=== PATIENT | female | born 1940 | race Caucasian/White ===

== ENCOUNTER 2018-10-29 12:10 | Observation (INO) ==
[2018-10-29] MEDS ORDERED: Aspirin 81 MG TAB.CHEW PO ONE (12:39)
[2018-10-29 13:23] LABS: Basophils # 0.1 K/mcL (0.0-0.2); Basophils % 0.4 %; Eosinophils # 0.1 K/mcL (0.0-0.6); Eosinophils % 0.3 %; Hematocrit 38.5 % (35.3-44.9); Hemoglobin 12.1 g/dL (11.5-15.4); Immature Granulocytes % 1.2 % (0-4); Lymphocytes # 1.6 K/mcL (0.6-4.6); Lymphocytes % 8.7 %; Mean Corpuscular HGB Conc 31.4 g/dL (31.6-35.5); Mean Corpuscular Hemoglobin 30.7 pg (28.0-33.3); Mean Corpuscular Volume 97.7 fL (83.0-100.0); Mean Platelet Volume 10.1 fL (9.4-12.4); Monocytes # 1.2 K/mcL (0.0-1.3); Monocytes % 6.2 %; Neutrophils # 15.6 K/mcL (1.6-8.9); Platelet Count 312 K/mcL (140-400); Red Blood Count 3.94 M/mcL (3.82-4.97); Red Cell Distribution Width 14.5 % (11.5-14.5); Segmented Neutrophils % 83.2 %
[2018-10-29 13:35] LABS: Prothrombin Time 10.8 Seconds (9.4-12.1)
[2018-10-29 13:37] LABS: Activated Partial Thrombo Time 25.9 Seconds (26.0-36.0)
[2018-10-29 14:38] LABS: Calcium 9.3 mg/dL (8.6-10.3); Potassium 4.2 mEq/L (3.5-5.1)
[2018-10-29] MEDS ORDERED: Isovue-370 500 ML BOTTLE IVP ONE (15:31)
[2018-10-29] MEDS ORDERED: *HR* Enoxaparin 80 MG/0.8 ML SYRINGE SQ STA (18:05)
--- NOTE | 2018-10-29 18:08 | Emergency Department Note ---
Disposition Clinical Impression: Pulmonary embolism Disposition: Admitted As Inpatient Condition: Good Referrals: Viktor Michel MD [Primary Care Provider] - Forms: ED Satisfaction Letter Time of Disposition: 18:33 Chest Pain HPI - General Chief Complaint: ED Chest Pain Stated Complaint: Chest Pain Time Seen by Provider: 10/29/18 12:38 - History of Present Illness HPI Narrative: The patient is a 78-year-old female presents to the emergency department compla ining of chest pain. Patient states that she has a sharp reproducible type chest pain been going on for several days. The patient is worse with inspiration and worse with movement. Patient reports his prior history of COPD and has had some mild shortness of breath. Patient denies hemoptysis. - Related Data Previous Rx's Medication Instructions Recorded Oxycodone HCl/Acetaminophen 1 each PO Q6H PRN #15 tablet 07/20/16 [Percocet 5-325 mg Tablet] Allergies Allergy/AdvReac Type Severity Reaction Status Date / Time acetaminophen [From Vicodin] Allergy Itching Verified 07/02/18 11:00 hydrocodone [From Vicodin] Allergy Itching Verified 07/02/18 11:00 All systems ED: reviewed and negative except as stated. Chest Pain PMH - Past Medical History Medical history: Reports: non-contributory Surgical history: Reports: orthopedic, other Psychiatric history: Reports: no psych history - Social History Smoking Status: Never smoker Alcohol use: Reports: none Drug use: Reports: none Physical Exam General: Conversant and pleasant interactive and nontoxic. Head: Normocephalic/atraumatic Eyes:PERRLA, EOMI, no conjunctivitis Nares: Without d/c. Ears: No erythema or d/c noted. Oralpharnyx: P&MMM noted, Neck: Supple, no JVD or ROAD CLEANER noted. Cardovascular: regular rate and rhythm without murmur, brisk capillary refill, no peripheral edema. Chest wall tender to palpation Lungs: Clear to ascultation bilaterally, non-labored Abd: Soft nontender, Non Distended, no guarding, no rebound. : Defered Extremities: moves all extremities equally Neuro: AOx3, no obvious gross neuro deficit Psych: Normal Affect Derm: No rash noted Course Course Narrative: Patient is feeling better in the emergency department. The scan showed evidence of pulmonary embolism was discussed with the patient will start oral novel anticoagulant the patient in review of the patient's insurance found that it would be over $200 a month for a novel anticoagulant versus Coumadin. Patient is times opted for warfarin therapy is will be discussed with the hospitalist initially admitted to the hospital service Vital Signs O2 Sat by Pulse Oximetry 98 10/29/18 12:58 O2 Sat by Pulse Oximetry 98 10/29/18 12:58 Chest Pain - MDM Narrative Medical decision making narrative: Given the findings of the new onset pulmonary embolism patient was found to have insurance that would cost a significant amount for a nominal anticoagulant. This time the decision was made to treat the patient with warfarin case will be discussed with the hospitalist currently the hospitalists is unable take calls for admissions, I signed out to Dr. Jefferson pending hospitalist acceptance - Lab Data Result diagrams: 10/29/18 12:50 10/29/18 13:46 Lab Results 10/29/18 10/29/18 10/29/18 Range/Units 12:50 12:50 12:50 WBC 18.7 H (4.3-11.1) K/mcL RBC 3.94 (3.82-4.97) M/mcL Hgb 12.1 (11.5-15.4) g/dL Hct 38.5 (35.3-44.9) % MCV 97.7 (83.0-100.0) fL MCH 30.7 (28.0-33.3) pg MCHC 31.4 L (31.6-35.5) g/dL RDW 14.5 (11.5-14.5) % Plt Count 312 (140-400) K/mcL MPV 10.1 (9.4-12.4) fL Immature Gran % 1.2 (0-4) % Seg Neutrophils % 83.2 % Lymphocytes % 8.7 % Monocytes % 6.2 % Eosinophils % 0.3 % Basophils % 0.4 % Neutrophils # 15.6 H (1.6-8.9) K/mcL Lymphocytes # 1.6 (0.6-4.6) K/mcL Monocytes # 1.2 (0.0-1.3) K/mcL Eosinophils # 0.1 (0.0-0.6) K/mcL Basophils # 0.1 (0.0-0.2) K/mcL PT 10.8 (9.4-12.1) Seconds INR 1.0 APTT 25.9 L (26.0-36.0) Seconds Sodium Potassium Chloride Carbon Dioxide BUN Creatinine Est GFR ( Amer) Est GFR (Non-Af Amer) BUN/Creatinine Ratio Glucose Calculated Osmolality Calcium Troponin I (< 0.04) ng/mL B-Natriuretic Peptide 83 (Less than 100) pg/mL Specimen Rejected 10/29/18 10/29/18 10/29/18 Range/Units 12:50 13:37 13:46 WBC (4.3-11.1) K/mcL RBC (3.82-4.97) M/mcL Hgb (11.5-15.4) g/dL Hct (35.3-44.9) % MCV (83.0-100.0) fL MCH (28.0-33.3) pg MCHC (31.6-35.5) g/dL RDW (11.5-14.5) % Plt Count (140-400) K/mcL MPV (9.4-12.4) fL Immature Gran % (0-4) % Seg Neutrophils % % Lymphocytes % % Monocytes % % Eosinophils % % Basophils % % Neutrophils # (1.6-8.9) K/mcL Lymphocytes # (0.6-4.6) K/mcL Monocytes # (0.0-1.3) K/mcL Eosinophils # (0.0-0.6) K/mcL Basophils # (0.0-0.2) K/mcL PT (9.4-12.1) Seconds INR APTT (26.0-36.0) Seconds Sodium Cancelled 136 Potassium Cancelled 4.2 Chloride Cancelled 99 Carbon Dioxide Cancelled 31 H BUN Cancelled 24 H Creatinine Cancelled 1.13 Est GFR ( Amer) Cancelled 56 L Est GFR (Non-Af Amer) Cancelled 46 L BUN/Creatinine Ratio Cancelled 21 Glucose Cancelled 140 H Calculated Osmolality Cancelled 288 Calcium Cancelled 9.3 Troponin I 0.03 (< 0.04) ng/mL B-Natriuretic Peptide (Less than 100) pg/mL Specimen Rejected Hemolyzed
--- NOTE | 2018-10-29 18:30 | Emergency Department Note ---
Disposition Clinical Impression: Pulmonary embolism Disposition: Admitted As Inpatient Condition: Good Referrals: Viktor Michel MD [Primary Care Provider] - Forms: ED Satisfaction Letter General Adult HPI - General Chief complaint: ED Chest Pain Stated complaint: Chest Pain Time Seen by Provider: 10/29/18 12:38 - Related Data Previous Rx's Medication Instructions Recorded Oxycodone HCl/Acetaminophen 1 each PO Q6H PRN #15 tablet 07/20/16 [Percocet 5-325 mg Tablet] Allergies Allergy/AdvReac Type Severity Reaction Status Date / Time acetaminophen [From Vicodin] Allergy Itching Verified 07/02/18 11:00 hydrocodone [From Vicodin] Allergy Itching Verified 07/02/18 11:00 Past Medical History - Past Medical History Medical history: Reports: non-contributory Surgical history: Reports: orthopedic, other Psychiatric history: Reports: no psych history - Social History Smoking Status: Never smoker Smokeless Tobacco Status: No Alcohol use: Reports: none Drug use: Reports: none Course - Reevaluation(s) Reevaluation #1: Patient signed out to my care at 1826 by the departing daytime ED attending Dr. Etelvina Clemente. Please see copy of his note for details of the H&P evaluation management and disposition to the point of sign out at 1826. Patient's workup was positive for right lower pulmonary artery thrombosis. Patient has been heparinized and we are waiting for the hospitalist to call back for admission. Patient stable Time: 18:26 Reevaluation #2: I was informed by Dr. Etelvina Clemente that he took it upon himself to speak with the hospitalist and get this patient admitted. Please see copy of his note for the admission details. Time: 18:59 Vital Signs O2 Sat by Pulse Oximetry 98 10/29/18 12:58 O2 Sat by Pulse Oximetry 98 10/29/18 12:58 Medical Decision Making - Lab Data Result diagrams: 10/29/18 12:50 10/29/18 13:46 Lab Results 10/29/18 10/29/18 10/29/18 Range/Units 12:50 12:50 12:50 WBC 18.7 H (4.3-11.1) K/mcL RBC 3.94 (3.82-4.97) M/mcL Hgb 12.1 (11.5-15.4) g/dL Hct 38.5 (35.3-44.9) % MCV 97.7 (83.0-100.0) fL MCH 30.7 (28.0-33.3) pg MCHC 31.4 L (31.6-35.5) g/dL RDW 14.5 (11.5-14.5) % Plt Count 312 (140-400) K/mcL MPV 10.1 (9.4-12.4) fL Immature Gran % 1.2 (0-4) % Seg Neutrophils % 83.2 % Lymphocytes % 8.7 % Monocytes % 6.2 % Eosinophils % 0.3 % Basophils % 0.4 % Neutrophils # 15.6 H (1.6-8.9) K/mcL Lymphocytes # 1.6 (0.6-4.6) K/mcL Monocytes # 1.2 (0.0-1.3) K/mcL Eosinophils # 0.1 (0.0-0.6) K/mcL Basophils # 0.1 (0.0-0.2) K/mcL PT 10.8 (9.4-12.1) Seconds INR 1.0 APTT 25.9 L (26.0-36.0) Seconds Sodium Potassium Chloride Carbon Dioxide BUN Creatinine Est GFR ( Amer) Est GFR (Non-Af Amer) BUN/Creatinine Ratio Glucose Calculated Osmolality Calcium Troponin I (< 0.04) ng/mL B-Natriuretic Peptide 83 (Less than 100) pg/mL Specimen Rejected 10/29/18 10/29/18 10/29/18 Range/Units 12:50 13:37 13:46 WBC (4.3-11.1) K/mcL RBC (3.82-4.97) M/mcL Hgb (11.5-15.4) g/dL Hct (35.3-44.9) % MCV (83.0-100.0) fL MCH (28.0-33.3) pg MCHC (31.6-35.5) g/dL RDW (11.5-14.5) % Plt Count (140-400) K/mcL MPV (9.4-12.4) fL Immature Gran % (0-4) % Seg Neutrophils % % Lymphocytes % % Monocytes % % Eosinophils % % Basophils % % Neutrophils # (1.6-8.9) K/mcL Lymphocytes # (0.6-4.6) K/mcL Monocytes # (0.0-1.3) K/mcL Eosinophils # (0.0-0.6) K/mcL Basophils # (0.0-0.2) K/mcL PT (9.4-12.1) Seconds INR APTT (26.0-36.0) Seconds Sodium Cancelled 136 Potassium Cancelled 4.2 Chloride Cancelled 99 Carbon Dioxide Cancelled 31 H BUN Cancelled 24 H Creatinine Cancelled 1.13 Est GFR ( Amer) Cancelled 56 L Est GFR (Non-Af Amer) Cancelled 46 L BUN/Creatinine Ratio Cancelled 21 Glucose Cancelled 140 H Calculated Osmolality Cancelled 288 Calcium Cancelled 9.3 Troponin I 0.03 (< 0.04) ng/mL B-Natriuretic Peptide (Less than 100) pg/mL Specimen Rejected Hemolyzed
[2018-10-29] MEDS ORDERED: Naloxone 0.4 MG/ML INJ IVP PRN (20:26)
--- NOTE | 2018-10-29 21:14 | Internal Med History&Physical ---
Date of Encounter: 10/29/18 Time of Encounter: 20:48 Internal Medicine - H&P: HPI Chief complaint: Pulmonary embolism Admitted From: Emergency Dept Plans for Post Hospital Care: Home History of present illness: Ms. Limon is a 78 year old female Patient presented to the emergency room with chest pain. She says that she has had it for the last couple of days and that it was worse with inspiration as well as exertion. She has a history of COPD and arthritis. She denies trauma, falls or injury. She lives at home with a friend who helps take care of her medications. Because the pain that improved after several days, she went to see her primary care doctor. At that point she was then referred to the emergency room for further evaluation. In the emergency room patient's vital signs were within normal limits. CBC revealed a white count of 18.7, and BMP revealed a GFR of 46 and a glucose of 140. Initial troponin was 0.03, BNP was 83. INR was 1.0. Chest x-ray showed no acute cardiopulmonary process, and CT angiogram revealed a pulmonary embolism in the right lower lobe pulmonary artery. The emergency department discussed anticoagulation with the patient, and she decided that she wanted warfarin therapy due to the expense of novel anticoagulants. She was given a dose of Lovenox and admitted to the hospital floor for further management. Upon my assessment, patient is resting comfortably in hospital bed in no acute distress. She denies chest pain, abdominal pain, nausea, vomiting, diarrhea and constipation. She had some shortness of breath earlier but this is improved. She has a past medical history of hypertension, arthritis and COPD. She is a family history of cerebral hemorrhage and blood clots on her father's side of the family and her mother had colon cancer. She does not know her home medications, and states that her friend that lives with her helps with her medicines. When asked about her CODE STATUS, patient indicated that she would not want to be resuscitated or intubated if required. Past Med Surg Social Fam HX - Past Medical History Medical history: COPD, diabetes, pulmonary embolus Psychiatric history: no psych history - Past Surgical History Surgical History: orthopedic, other - Social History Smoking Status: Former smoker Smokeless Tobacco Status: No Alcohol use: none Drug use: none Internal Medicine - H&P: Meds Oxycodone HCl/Acetaminophen [Percocet 5-325 mg Tablet] 1 each PO Q6H PRN #15 tablet 07/20/16 [Rx] Allergy/AdvReac Type Severity Reaction Status Date / Time acetaminophen [From Vicodin] Allergy Itching Verified 07/02/18 11:00 hydrocodone [From Vicodin] Allergy Itching Verified 07/02/18 11:00 All Systems PM: A 10-system review of systems was performed and is negative for pertinent findings except as documented above in the HPI. - Constitutional Vitals: Temp Pulse Resp BP Pulse Ox 98.4 F 91 16 187/82 95 10/29/18 20:59 10/29/18 20:59 10/29/18 20:59 10/29/18 20:59 10/29/18 20:59 General appearance: Present: cooperative, A&O X 3, pleasant, no acute distress, answers questions appropriately Exam: - - Head Head exam: Present: normal inspection - Eye Eye exam: Present: EOMI, normal appearance - Respiratory Respiratory exam: Present: CTAB. Absent: rales, respiratory distress, rhonchi, wheezes - Cardiovascular Cardiovascular exam: Present: RRR. Absent: diastolic murmur, systolic murmur - GI/Abdominal GI/Abdominal exam: Present: normal bowel sounds, soft. Absent: tenderness - Extremities Exam Extremities exam: Present: pedal edema, warm, radial pulses palpable and symmetrical. Absent: tenderness Additional comments: +1 pitting edema bilaterally lower extremities - Neurological Exam Neurological exam: Present: no focal deficits, strengths equal and symetr throug hout. Absent: motor sensory deficit, facial droop, speech deficit - Skin Skin exam: Present: dry, normal color, warm Internal Med - H&P Results - Labs CBC & Chem 7: 10/29/18 12:50 10/29/18 13:46 Labs: Short CBC 10/29/18 Range/Units 12:50 WBC 18.7 H (4.3-11.1) K/mcL Hgb 12.1 (11.5-15.4) g/dL Hct 38.5 (35.3-44.9) % Plt Count 312 (140-400) K/mcL Neutrophils # 15.6 H (1.6-8.9) K/mcL BMP 10/29/18 10/29/18 12:50 13:46 Sodium Cancelled 136 Potassium Cancelled 4.2 Chloride Cancelled 99 Carbon Dioxide Cancelled 31 H BUN Cancelled 24 H Creatinine Cancelled 1.13 Glucose Cancelled 140 H Calcium Cancelled 9.3 Cardiac Enzymes 10/29/18 Range/Units 12:50 Troponin I 0.03 (< 0.04) ng/mL - Impressions ITS Impressions Chest X-Ray 10/29/18 12:39 IMPRESSION: No acute cardiopulmonary process. D/ / Semaj Lam MD / Semaj Lam MD Interpreting Provider: Semaj Lam MD Chest CTA 10/29/18 15:31 IMPRESSION: Pulmonary embolism right lower lobe pulmonary artery. Findings were discussed with Artemio Evans at 4:50 pm on 10/29/2018. D/ / Raymond Gill MD / Raymond Gill MD Interpreting Provider: Raymond Gill MD - Assessment and Plan (1) Pulmonary embolism Current Visit: Yes Status: Acute Assessment and plan: Patient found to have a right lower lobe pulmonary embolism. She received Lovenox in the emergency room. She has never had blood clots before, but does stay that her father had history of blood clots. Start Coumadin tonight Continue to bridge with lovenox until therapeutic INR INR in the morning Pharmacy to dose Coumadin Echocardiogram in the morning Qualifiers: Pulmonary embolism type: other Chronicity: acute Acute cor pulmonale pre sence: without acute cor pulmonale Qualified Code(s): I26.99 - Other pulmonary embolism without acute cor pulmonale (2) Hyperglycemia Current Visit: Yes Status: Acute Assessment and plan: Patient had elevated blood sugars upon arrival to the medical floor. She denies history of diabetes. She did have a hamburger and fries before her arrival. Repeat blood sugar Check A1c in the morning May consider sliding scale insulin if needed (3) Left shoulder pain Current Visit: Yes Status: Acute Assessment and plan: Secondary to chronic arthritis. Patient does not know her home meds. Pain management as needed Qualifiers: Chronicity: chronic Qualified Code(s): M25.512 - Pain in left shoulder; G89.29 - Other chronic pain (4) Lower extremity edema Current Visit: Yes Status: Acute Assessment and plan: Patient has slight 1+ pitting edema bilaterally, which she says has been worse over the last few days. She denies history of heart failure. Echocardiogram in the morning (5) Hypertension Current Visit: Yes Status: Acute Assessment and plan: Patient's blood pressure was elevated upon arrival to the floor with a systolic of 187. Patient does not know her home meds. Hydralazine 10 mg IV every 6 hours as needed Qualifiers: Hypertension type: essential hypertension Qualified Code(s): I10 - Essential (primary) hypertension (6) DVT prophylaxis Current Visit: Yes Status: Acute Assessment and plan: Patient received lovenox in the ER. Will be starting warfarin for home use. Pharmacy recommends 5mg dose tonight, get INR in the morning. Pharmacy to continue to dose coumadin. - Time Spent With Patient Total time spent is greater than 50% in coordination of care (as documented) at patient's floor/unit and/or counseling patient: Greater than 35 minutes
[2018-10-29] MEDS ORDERED: *HR* Warfarin 5 MG TABLET PO ONE (21:33)
[2018-10-29] MEDS ORDERED: Ibuprofen 400 MG TABLET PO PRN (21:46)
[2018-10-30 01:30] LABS: BUN/Creatinine Ratio 20 (6-26); Blood Urea Nitrogen 20 mg/dL (8-23); Calcium 9.2 mg/dL (8.6-10.3); Carbon Dioxide 28 mEq/L (23-29); Chloride 101 mEq/L (98-107); Glucose 138 mg/dL (70-105); Osmolality,Calculated 289 (280-300); Potassium 3.5 mEq/L (3.5-5.1); Sodium 137 mEq/L (136-145); eGFR For Non-African Americans 52 (> 60)
[2018-10-30 01:47] LABS: Hematocrit 37.7 % (35.3-44.9); Hemoglobin 12.2 g/dL (11.5-15.4); Mean Corpuscular HGB Conc 32.4 g/dL (31.6-35.5); Mean Corpuscular Hemoglobin 30.7 pg (28.0-33.3); Mean Platelet Volume 9.8 fL (9.4-12.4); Platelet Count 314 K/mcL (140-400); Red Blood Count 3.97 M/mcL (3.82-4.97); Red Cell Distribution Width 14.6 % (11.5-14.5)
[2018-10-30 01:51] LABS: Prothrombin Time 11.3 Seconds (9.4-12.1)
[2018-10-30 02:26] LABS: Estimated Average Glucose 171 mg/dl; Hemoglobin A1C 7.6 %
[2018-10-30] MEDS ORDERED: *HR* Enoxaparin 80 MG/0.8 ML SYRINGE SQ SCH (06:00)
[2018-10-30] MEDS: Ondansetron 4 MG/2 ML VIAL IVP PRN ×2 (06:43→17:35)
--- NOTE | 2018-10-30 08:59 | Internal Med Progress Note ---
Hospitalist Progress Note - Encounter Date of Encounter: 10/30/18 Time of Encounter: 08:53 - Subjective Interval History: Patient seen and examined this morning at bedside. No acute overnight events. Breathing improved. Currently without any chest pain. Denies any abdominal pain and nausea vomiting and diarrhea. Afebrile. - Exam Vitals: Temp Pulse Resp BP Pulse Ox 97.8 F 100 16 120/68 94 10/30/18 06:46 10/30/18 06:46 10/30/18 06:46 10/30/18 06:46 10/30/18 06:46 Exam: General: In no acute distress. Respiratory exam: CTAB. no accessory muscle use, rales, rhonchi, wheezes Cardiovascular exam: RRR, +S1, +S2. no murmur, gallop, rubs. GI/Abdominal exam: Non-tender, Non-distended, normal bowel sounds, soft, no peritoneal signs. Extremities exam: trace pedal edema, pulses palpable in b/l lower extremities. no calf tenderness Neurological exam: CN II-XII intact, AO X3, no focal deficits. Skin exam: multiple ecchymosis in arms an legs. - Summary of Assessment and Plan Summary of Assessment and Plan: Pulmonary embolism - right lower lobe pulmonary embolism. - c/w Lovenox bridge to coumadin. No recent immobilization. some h/o blood clot in father. details unknown - f/u Echocardiogram Hyperglycemia - Denies being diabetic - On prednisone for arthritis - A1c in diabetic range - Will discuss about metformin on discharge Left shoulder pain - has chronic arthritis. - c/w home medications Hypertension - Resume home medications - Hydralazine 10 mg IV every 6 hours as needed DVT prophylaxis - on lovenox to bridge to warfarin. - Time Spent with Patient Total time spent is greater than 50% in coordination of care (as documented) at patient's floor/unit and/or counseling patient: Internal Medicine: Result - Labs CBC & Chem 7: 10/30/18 00:54 10/30/18 00:54 Labs: Short CBC 10/29/18 10/30/18 Range/Units 12:50 00:54 WBC 18.7 H 16.7 H (4.3-11.1) K/mcL Hgb 12.1 12.2 (11.5-15.4) g/dL Hct 38.5 37.7 (35.3-44.9) % Plt Count 312 314 (140-400) K/mcL Neutrophils # 15.6 H (1.6-8.9) K/mcL BMP 10/29/18 10/29/18 10/30/18 12:50 13:46 00:54 Sodium Cancelled 136 137 Potassium Cancelled 4.2 3.5 Chloride Cancelled 99 101 Carbon Dioxide Cancelled 31 H 28 BUN Cancelled 24 H 20 Creatinine Cancelled 1.13 1.02 Glucose Cancelled 140 H 138 H Calcium Cancelled 9.3 9.2 Cardiac Enzymes 10/29/18 Range/Units 12:50 Troponin I 0.03 (< 0.04) ng/mL - ABG Interpretation ABG results: PT/INR, D-dimer PT 11.3 Seconds (9.4-12.1) 10/30/18 00:54 - Impressions Impressions Chest X-Ray 10/29/18 12:39 IMPRESSION: No acute cardiopulmonary process. D/ / Semaj Lam MD / Semaj Lam MD Interpreting Provider: Semaj Lam MD Chest CTA 10/29/18 15:31 IMPRESSION: Pulmonary embolism right lower lobe pulmonary artery. Findings were discussed with Artemio Evans at 4:50 pm on 10/29/2018. D/ / Raymond Gill MD / Raymond Gill MD Interpreting Provider: Raymond Gill MD Echocardiogram 10/29/18 20:30 Impressions: Blood pressure 187/82 mmHg at time of study. LVEF 65%. Mild left ventricular diastolic dysfunction. Mild concentric left ventricular hypertrophy. Normal right ventricular structure and function. Mild mitral regurgitation. No pulmonary hypertension. Left Ventricular Wall Motion: Rest Echo Findings All wall segments showed normal motion. Findings: Study Quality * Technically adequate exam. ECG Findings * Sinus tachycardia. Left Ventricle * LVEF 65%. * Mild left ventricular diastolic dysfunction. * Mild concentric left ventricular hypertrophy. Right Ventricle * Normal right ventricular structure and function. Left Atrium * Normal left atrial size. Right Atrium * Normal right atrial size. Mitral Valve * Normal mitral valve structure. * No mitral stenosis. * Mild mitral regurgitation. Aortic Valve * No aortic regurgitation. * Aortic valve not well visualized. * No aortic stenosis. Tricuspid Valve * Tricuspid valve not well visualized. * Trace tricuspid regurgitation. Pulmonic Valve * Trace pulmonic regurgitation. * Pulmonic valve is not well visualized. * No pulmonic stenosis. Pulmonary Artery * Pulmonary artery not well visualized. Aorta * Normally sized aortic root. Pericardium * There is no pericardial effusion present. Interatrial Septum * Interatrial septum not well evaluated. IVC * The IVC is not well evaluated. Consult Discharge Plan - Plan Referrals: Viktor Michel MD [Primary Care Provider] -
[2018-10-30] MEDS ORDERED: NON-FORMULARY MEDICATION 1 EACH EACH (Pantoprazole Sodium [Protonix] 40 MG) PO SCH (09:00)
[2018-10-30] MEDS ORDERED: SALMETEROL PO SCH (09:00)
[2018-10-30] MEDS ORDERED: FLUTICASONE PO SCH (09:00)
[2018-10-30] MEDS: Lisinopril 20 MG TABLET PO SCH (10:06)
[2018-10-30] MEDS: amLODIPine 5 MG TABLET PO SCH (10:06)
[2018-10-30] MEDS: predniSONE 5 MG TABLET PO SCH ×2 (10:06→21:04)
[2018-10-30] MEDS: clonazePAM 0.5 MG TABLET PO SCH ×2 (10:06→21:04)
[2018-10-30] MEDS: Fluticasone Propionate Nasal 50 MCG/SPRAY BOTTLE NS SCH (12:02)
[2018-10-30] MEDS: Tiotropium 18 MCG inhalation IH SCH (13:36)
[2018-10-30] MEDS: Budesonide/Formoterol 160/4.5 1 PUFF INH IH SCH ×2 (13:36→20:07)
[2018-10-30] MEDS ORDERED: Warfarin perPT PO PRN (18:00)
[2018-10-30] MEDS ORDERED: *HR* Warfarin 5 MG TABLET PO ONE (18:00)
[2018-10-31 06:24] LABS: INR 1.1; Prothrombin Time 12.9 Seconds (9.4-12.1)
[2018-10-31] MEDS: Fluticasone Propionate Nasal 50 MCG/SPRAY BOTTLE NS SCH (08:02)
[2018-10-31] MEDS: clonazePAM 0.5 MG TABLET PO SCH (08:03)
[2018-10-31] MEDS: amLODIPine 5 MG TABLET PO SCH (08:04)
[2018-10-31] MEDS: predniSONE 5 MG TABLET PO SCH (08:05)
[2018-10-31] MEDS: Lisinopril 20 MG TABLET PO SCH (08:05)
[2018-10-31] MEDS ORDERED: *HR* Enoxaparin 80 MG/0.8 ML SYRINGE SQ SCH (09:00)
[2018-10-31 11:00] VITALS: BP 132/78
[2018-10-31] MEDS: Tiotropium 18 MCG inhalation IH SCH (11:05)
[2018-10-31] MEDS: Budesonide/Formoterol 160/4.5 1 PUFF INH IH SCH (11:05)
--- NOTE | 2018-10-31 12:29 | Discharge Summary ---
- NOTES TO OUTPATIENT PROVIDER Notes to Outpatient Provider: Patient started on Coumadin for PE with Lovenox bridging. She was started on metformin for newly diagnosed diabetes. We will need follow-up for blood glucose control. Coumadin clinic appointment scheduled Orders not resulted at time of discharge: Pending orders 11/01/18 04:00 INR/PT [Prothrombin Time INR] [COAG] AM 0400 11/02/18 04:00 INR/PT [Prothrombin Time INR] [COAG] AM 0400 Date of Encounter: 10/31/18 Time of Encounter: 12:20 - Discharge Diagnosis (1) Newly diagnosed diabetes Priority: Secondary Status: Acute (2) Hypertension Priority: Secondary Status: Acute Qualifiers: Hypertension type: essential hypertension Qualified Code(s): I10 - Essential (primary) hypertension (3) Pulmonary embolism Priority: Primary Status: Acute Qualifiers: Pulmonary embolism type: other Chronicity: acute Acute cor pulmonale presence: without acute cor pulmonale Qualified Code(s): I26.99 - Other pulmonary embolism without acute cor pulmonale (4) Arthritis Priority: Secondary Status: Acute (5) COPD (chronic obstructive pulmonary disease) Priority: Secondary Status: Acute Qualifiers: Emphysema type: unspecified Qualified Code(s): J43.9 - Emphysema, unspecified Hospital course: Ms. Limon is a 78 year old female with past medical history of arthritis with left shoulder pain on prednisone, COPD, depression came in with complain of shortness of breath. Patient was found to have pulmonary embolism and right lower lobe pulmonary artery. Patient was started on Lovenox to bridge with Coumadin after consideration of kemp. Patient was also found to have newly diagnosed diabetes. A1c of 7.6. Patient wanted to continue prednisone after discussion we will discharge patient on metformin low-dose. Discussed potential side effects. Patient to follow-up with PCP for blood glucose monitoring and Coumadin clinic for INR monitoring. Will be discharged on 5 days of Lovenox and a week of Coumadin along with metformin. Patient otherwise stable to be discharged home. Discharge discussed with: patient, family, nurse - Time Spent with Patient Total time spent providing and/or coordinating discharge services: Time spent: Greater than 30 minutes (40) - Discharge Medications Prescriptions: New Enoxaparin [Lovenox] 80 mg SQ DAILY 5 Days #5 syr Warfarin [Coumadin] 5 mg PO 1800 7 Days #7 tablet metFORMIN [Glucophage] 500 mg PO BIDWM 30 Days #60 tablet Continued amLODIPine [Norvasc] 5 mg PO DAILY Aspirin [Lo-Dose Aspirin EC] 81 mg PO DAILY Carvedilol 12.5 mg PO BID Cetirizine HCl [24Hour Allergy] 10 mg PO DAILY clonazePAM [Clonazepam] 0.5 mg PO BID Duloxetine HCl [Cymbalta] 60 mg PO DAILY Fluticasone Propionate Nasal [Flonase] 2 spr NS DAILY Fluticasone/Salmeterol [Advair 500-50 Diskus] 1 puff PO BID Levothyroxine [Synthroid] 88 mcg PO QAM Lisinopril [Zestril] 20 mg PO DAILY Memantine HCl 5 mg PO BID Montelukast [Singulair] 10 mg PO DAILY Omeprazole [PriLOSEC] 20 mg PO DAILY Oxybutynin [Ditropan] 5 mg PO DAILY predniSONE [PredniSONE] 5 mg PO BID Raloxifene [Evista] 60 mg PO DAILY Tiotropium [Spiriva] 1 puff PO DAILY Tramadol HCl [Ultram] 50 mg PO BID PRN PRN Reason: Pain Tiotropium [place] [Spiriva Respimat] 4 gm IH DAILY Home Medications: Aspirin [Lo-Dose Aspirin EC] 81 mg PO DAILY 10/29/18 [History] Carvedilol 12.5 mg PO BID 10/29/18 [History] Cetirizine HCl [24Hour Allergy] 10 mg PO DAILY 10/29/18 [History] Duloxetine HCl [Cymbalta] 60 mg PO DAILY 10/29/18 [History] Fluticasone Propionate Nasal [Flonase] 2 spr NS DAILY 10/29/18 [History] Fluticasone/Salmeterol [Advair 500-50 Diskus] 1 puff PO BID 10/29/18 [History] Levothyroxine [Synthroid] 88 mcg PO QAM 10/29/18 [History] Lisinopril [Zestril] 20 mg PO DAILY 10/29/18 [History] Memantine HCl 5 mg PO BID 10/29/18 [History] Montelukast [Singulair] 10 mg PO DAILY 10/29/18 [History] Omeprazole [PriLOSEC] 20 mg PO DAILY 10/29/18 [History] Oxybutynin [Ditropan] 5 mg PO DAILY 10/29/18 [History] Raloxifene [Evista] 60 mg PO DAILY 10/29/18 [History] Tiotropium [Spiriva] 1 puff PO DAILY 10/29/18 [History] Tramadol HCl [Ultram] 50 mg PO BID PRN 10/29/18 [History] amLODIPine [Norvasc] 5 mg PO DAILY 10/29/18 [History] clonazePAM [Clonazepam] 0.5 mg PO BID 10/29/18 [History] predniSONE [PredniSONE] 5 mg PO BID 10/29/18 [History] Enoxaparin [Lovenox] 80 mg SQ DAILY 5 Days #5 syr 10/30/18 [Rx] Tiotropium [place] [Spiriva Respimat] 4 gm IH DAILY 10/30/18 [History] Warfarin [Coumadin] 5 mg PO 1800 7 Days #7 tablet 10/31/18 [Rx] metFORMIN [Glucophage] 500 mg PO BIDWM 30 Days #60 tablet 10/31/18 [Rx] Allergies/Adverse Reactions: Allergy/AdvReac Type Severity Reaction Status Date / Time acetaminophen [From Vicodin] Allergy Itching Verified 10/29/18 23:51 hydrocodone [From Vicodin] Allergy Itching Verified 10/29/18 23:51 Date of admission: 10/29/18 19:25 Primary care physician: iVktor Michel MD Consults: 10/29/18 21:19 Consult to Pastoral Services [CONS] Routine Comment: Discharging clinician: Mali Walters Caballero - Constitutional Vitals: Temp Pulse Resp BP Pulse Ox 98.3 F 82 14 132/78 97 10/31/18 10:44 10/31/18 10:44 10/31/18 11:05 10/31/18 10:44 10/31/18 11:05 Exam: General: In no acute distress. Respiratory exam: CTAB. no accessory muscle use, rales, rhonchi, wheezes Cardiovascular exam: RRR, +S1, +S2. no murmur, gallop, rubs. GI/Abdominal exam: Non-tender, Non-distended, normal bowel sounds, soft, no peritoneal signs. Extremities exam: trace pedal edema, no calf tenderness Neurological exam: CN II-XII intact, AO X3, no focal deficits. Skin exam: multiple ecchymosis in arms an legs. - Patient Status Disposition: Home, Self-Care Condition: Good - Discharge Instructions Follow Up With: Viktor Michel MD [Primary Care Provider] - - Diet and Activity Activity: increase activity as tolerated
[2018-10-31] MEDS ORDERED: *HR* Warfarin 5 MG TABLET PO ONE (18:00)
--- NOTE | 2018-11-02 13:51 | Electrocardiograph Report ---
[facility] Test Date: 2018-10-29 Pat Name: Jaycee Limon Department: [id number] Room: 3A13 Gender: F Lending Consultant: : 1940 Requested By: Fabio Evans Order Number: [id number] Reading MD: Farhat Lee Measurements Intervals [place] Rate: 72 P: 59 FL: 151 QRS: 16 QRSD: 85 T: 40 QT: 390 QTc: 427 Interpretive Statements Sinus rhythm Low voltage, precordial leads Electronically Signed On 11-02-2018 13:49:10 EDT by Farhat Lee
== END 2018-10-31 13:33 | disposition home or self-care (01) ==
LOC: EMEROOARM 12:10 → 3ANU 12:10 → SUATTDRO 19:25 → 3ANU 20:37
PROVIDERS: ADMIT Internal Medicine; ATTEND Internal Medicine